=== PATIENT | male | born 1955 | race Caucasian/White ===

== ENCOUNTER 2017-02-04 22:58 | Emergency (ER) | payer BC ==
--- NOTE | 2017-02-04 23:10 | PDOC ---
History of Present Illness - General Stated Complaint: LEG PAIN Time Seen by Provider: 02/04/17 23:10 - History of Present Illness Initial Comments: 02/04/17 23:38 The patient is a 61 year old male, with a significant past medical history of HTN, who was BIBA to the emergency department for 2 syncopal episodes that occurred around 10:45 pm today. Patient states he was sleeping and abruptly woke up with a left leg cramp. He stated it was extremely painful and intense, so he tried alerting his . She says she encouraged him to stretch it out and suddenly he experienced a syncopal episode that lasted for a few seconds according to his . They called 911 and he had a second syncopal episode. Patient states he experienced similar leg cramping accompanied with a syncopal episode in May while visiting his son in [place]. He denies any recent fevers, chills, headache or dizziness. He denies any recent nausea, vomit, diarrhea or constipation. He denies any recent chest pain or shortness of breath. He denies any recent dysuria, frequency, urgency or hematuria. Allergies: NKA Past surgical history: Appendectomy, Right shoulder operation, Ulna nerve laceration (Age 15) Social History: On & Off smoker (pack a day) Occasional alcohol use. [facility] Past History - Past Medical History Anemia: No Asthma: No Cancer: No Cardiac Disorders: No CVA: No COPD: No CHF: No Dementia: No Diabetes: No GI Disorders: No Disorders: No HTN: Yes Hypercholesterolemia: No Liver Disease: No Seizures: No Thyroid Disease: No - Surgical History Abdominal Surgery: No Appendectomy: No Cardiac Surgery: No Cholecystectomy: No Lung Surgery: No Neurologic Surgery: No Orthopedic Surgery: Yes (Repair Right Ulnar Nerve,Right Shoulder Arthroscopy Exc Lipoma Right Leg) - Suicide/Smoking/Psychosocial Hx Smoking History: Former smoker Have you smoked in the past 12 months: No Hx Alcohol Use: Yes (weekends) Drug/Substance Use Hx: No Substance Use Type: Alcohol Hx Substance Use Treatment: No - Past Medical History Allergies/Adverse Reactions: Allergies Allergy/AdvReac Type Severity Reaction Status Date / Time No Known Allergies Allergy Verified 02/04/17 23:24 Home Medications: Ambulatory Orders Aspirin 162 mg PO DAILY 04/22/13 Multivitamin [Multivitamins] 1 each PO DAILY 04/22/13 Valsartan [Diovan] 160 mg PO DAILY 04/22/13 Cardiac Specific PMH - Complaint Specific PMHX Pacemaker: No Review of Systems - Review of Systems Comments:: 02/04/17 23:38 CONSTITUTIONAL: Absent: fever, no chills, no fatigue EYES: Present: eyes dilated at time of syncopal episode ENT: Absent: ear pain, no sore throat CARDIOVASCULAR: Absent: chest pain, no palpitations RESPIRATORY: Absent: cough, no SOB GI: Absent: abdominal pain, no nausea, no vomiting, no constipation, no diarrhea GENITOURINARY: Absent: dysuria, no frequency, no hematuria MUSCULOSKELETAL: Present left leg cramp Absent: back pain, no arthralgia. SKIN: Absent: rash NEURO: Present: syncopal episodes (2x) Absent: headache (Ana María Garcia) *Physical Exam - Vital Signs Last Vital Signs Temp Pulse Resp BP Pulse Ox 97.6 F 83 18 131/79 96 02/04/17 23:25 02/04/17 23:25 02/04/17 23:25 02/04/17 23:25 02/04/17 23:25 - Physical Exam Comments: 02/04/17 23:40 GENERAL: Well-appearing, well-nourished. No apparent distress. HEENT: Normocephalic, atraumatic. PERRL, EOM intact. CARDIOVASCULAR: Normal S1, S2. Regular rate and rhythm. PULMONARY: Clear to auscultation bilaterally. ABDOMEN: Soft, non-distended, non-tender. EXTREMITIES: Normal ROM in all four extremities. No gross deformities. SKIN: Warm, dry. No rash NEUROLOGICAL: No focal neurological deficits. (Ana María Garcia) ED Treatment Course - LABORATORY CBC & Chemistry Diagram: 02/04/17 23:55 02/04/17 23:55 - ADDITIONAL ORDERS Additional order review: Laboratory Results 02/04/17 02/04/17 02/04/17 23:55 23:55 23:55 PT with INR 11.00 INR 0.97 Sodium 141 Potassium 4.1 Chloride 105 Carbon Dioxide 26 Anion Gap 10 BUN 20 H Creatinine 1.5 H Creat Clearance w eGFR 47.42 Random Glucose 96 Calcium 8.0 L Magnesium 2.2 Total Bilirubin 0.2 AST 22 ALT 48 Alkaline Phosphatase 97 Creatine Kinase 228 Creatine Kinase Index 0.6 CK-MB (CK-2) 1.507 Troponin I < 0.02 Total Protein 6.4 Albumin 3.6 Triglycerides 175 H Cholesterol 177 Total LDL Cholesterol 101 H HDL Cholesterol 55 Urine Color Ltyellow Urine Appearance Clear Urine pH 6.0 Ur Specific [place] 1.018 Urine Protein Negative Urine Glucose (UA) Negative Urine Ketones Negative Urine Blood Negative Urine Nitrite Negative Urine Bilirubin Negative Urine Urobilinogen Negative 02/04/17 23:55 RBC 4.73 MCV 92.1 MCHC 34.7 RDW 13.3 MPV 6.9 L Neutrophils % 61.2 Lymphocytes % 24.4 Monocytes % 9.8 Eosinophils % 4.1 Basophils % 0.5 - RADIOLOGY Radiology Studies Ordered: Category Date Time Status HEAD CT WITHOUT CONTRAST [CT] Stat CT Scan 02/05/17 00:38 Taken CHEST X-RAY PORTABLE* [RAD] Stat Radiology 02/04/17 23:10 Taken Medical Decision Making - Medical Decision Making 02/05/17 01:54 61-year-old male brought in by ambulance after 2 successive syncopal episodes this evening. He states that he woke up having severe leg pains and got up to see his and had a syncopal episode. He was laying on the floor and had another syncopal according to his -Patient was stable vital signs. EKG is normal sinus rhythm, [address] elevations or depressions. Review of symptoms. He denies fever or chills or nausea or vomiting or cough or shortness of breath, chest pain or abdominal pain. He denies any slurred speech, numbness or tingling in his extremities, facial droop or confusion. He has no gross focal neural deficits. CVS regular rate and rhythm S1, S2 no gallops, rubs. Lungs clear to auscultation bilaterally Abdomen is soft, nontender, nondistended. Neuro exam shows he is alert and oriented 3, cranial nerves II through XII grossly intact, motor strength bilaterally is 5 out of 5, Babinski's bilaterally , no ataxia, sensation is intact bilaterally First cardiac enzymes are negative. Review of the labs shows CBC is unremarkable Review of her chemistry says shows some renal insufficiency. CAT scan of the head does not show any acute intracranial pathology. However, there are chronic lacunar infarcts, atrophy -Patient and his explained in 1-2 a repeat cardiac enzyme. They wanted to leave AGAINST MEDICAL ADVICE. (Trisha Mackey) *DC/Admit/Observation/Transfer Diagnosis at time of Disposition: AMA - Signed out against medical advice - Attestations Scribe Attestion: 02/04/17 23:40 Documentation prepared by Ana María Garcia, acting as medical appointment clerk for Trisha Mackey MD. (Ana María Garcia)
[2017-02-04 23:28] VITALS: BP 131/79; PULSE 83; TEMP 97.6; BMI 32.8
[2017-02-05 00:12] LABS: BASOPHIL 0.5 % (0-2.0); EOSINOPHIL 4.1 % (0-4.5); MCHC 34.7 g/dl (32.0-35.9); MEAN CELL VOLUME 92.1 fl (80-96); MEAN PLT VOLUME 6.9 fl (7.5-11.1); NEUTROPHILS 61.2 % (42.8-82.8); PLATELET COUNT 192 K/MM3 (134-434); RDW 13.3 % (11.9-15.9)
[2017-02-05 00:17] LABS: URINE APPEARANCE CLEAR; URINE BILIRUBIN NEGATIVE (NEGATIVE); URINE BLOOD NEGATIVE (NEGATIVE); URINE COLOR LTYELLOW; URINE GLUCOSE (UA) NEGATIVE (NEGATIVE); URINE KETONE NEGATIVE (NEGATIVE); URINE NITRITE NEGATIVE (NEGATIVE); URINE PROTEIN NEGATIVE (NEGATIVE); URINE UROBILINOGEN NEGATIVE mg/dL (0.2-1.0)
[2017-02-05 00:23] LABS: INR 0.97 (0.82-1.09)
[2017-02-05 00:36] LABS: ALBUMIN 3.6 g/dl (3.4-5.0); ANION GAP 10 (8-16); BILIRUBIN,TOTAL 0.2 mg/dL (0.2-1.0); CHOLESTEROL 177 mg/dL (50-200); CO2 26 mmol/L (21-32); CREATININE 1.5 mg/dL (0.7-1.3); GLUCOSE,RANDOM 96 mg/dL (74-106); MAGNESIUM 2.2 mg/dL (1.8-2.4); SGOT/AST 22 U/L (15-37); SGPT/ALT 48 U/L (12-78); TOT PROT 6.4 g/dl (6.4-8.2)
[2017-02-05 00:37] LABS: ALK PHOS 97 U/L (45-117); CPK 228 IU/L (39-308); TROPONIN I < 0.02 ng/ml (0.00-0.05)
[2017-02-05 18:17] LABS: URINE LEUK ESTERASE Negative (NEGATIVE)
--- NOTE | 2017-02-07 11:17 | EKG ---
Test Reason : Blood Pressure : / mmHG Vent. Rate : 085 BPM Atrial Rate : 085 BPM P-R Int : 154 ms QRS Dur : 068 ms QT Int : 350 ms P-R-T Axes : 046 029 021 degrees QTc Int : 416 ms POOR DATA QUALITY, INTERPRETATION MAY BE ADVERSELY AFFECTED NORMAL SINUS RHYTHM NORMAL ECG NO PREVIOUS ECGS AVAILABLE Confirmed by SHARON HAMMER MD ([id number]) on 02/07/2017 11:17:03 AM Referred By: Confirmed By:SHARON HAMMER MD
== END 2017-02-05 02:07 | disposition left against medical advice (07) ==
LOC: JER 22:58
DX: R55 Syncope and collapse (principal); I10 Essential (primary) hypertension
CPT/HCPCS: 36415; 70450-TC; 71010-TC; 80053; 80061; 81003; 82550; 82553; 83721; 83735; 84484; 85025; 85610; 93005; 93010; 99281-25; 99284-25

== ENCOUNTER 2021-12-13 05:14 | Day surgery (SDC) | payer BC ==
[2021-12-11 15:25] VITALS: BMI 29.8
[2021-12-13 10:10] VITALS: BP 130/75; PULSE 78; RESP 98; TEMP 97.5
== END 2021-12-13 10:35 | disposition home or self-care (01) ==
LOC: JASU-ENDO 05:14
PROVIDERS: ATTEND Internal Medicine Gastroenterology
PROC: 0DBN8ZX Excision of Sigmoid Colon, Via Natural or Artificial Opening Endoscopic, Diagnostic (ICD-10-PCS; 2021-12-13)
PROC: 0DBH8ZX Excision of Cecum, Via Natural or Artificial Opening Endoscopic, Diagnostic (ICD-10-PCS; principal; 2021-12-13 09:00)
DX: Z12.11 Encounter for screening for malignant neoplasm of colon (principal); D12.0 Benign neoplasm of cecum; D12.7 Benign neoplasm of rectosigmoid junction; K57.30 Diverticulosis of large intestine without perforation or abscess without bleeding; K64.8 Other hemorrhoids; I10 Essential (primary) hypertension
CPT/HCPCS: 88305-TC